=== PATIENT | female | born 1930 | race Caucasian/White ===

== ENCOUNTER → 2016-07-01 | Outpatient (CLI) | payer OTHER | LOC: BHLMT 11:30 | PROVIDERS: ATTEND Internal Medicine Cardiovascular Disease | DX: I48.0 Paroxysmal atrial fibrillation (principal); E78.00 Pure hypercholesterolemia, unspecified | CPT/HCPCS: 93005-PO ==

== ENCOUNTER 2017-12-22 09:51 | Day surgery (SDC) | payer OTHER ==
[2017-12-22] MEDS ORDERED: LR 1,000 ML IV ONE (10:15)
[2017-12-22] MEDS ORDERED: ceFAZolin 2 GM/DEXTROSE 100 ML IV ONE (10:15)
--- NOTE | 2017-12-22 11:13 | PDHPUP ---
History & Physical Update H&P update statement: This history and physical update is based on an assessment of the patient which was completed after admission or registration (within 24 hours), but prior to the surgery/procedure. H&P update: H&P reviewed & patient examined, no change in patient's condition since H&P completed
[2017-12-22] MEDS ORDERED: BUPIVACAINE 0.5% 30 ML SDV ONE (11:43)
--- NOTE | 2017-12-22 11:46 | PDANEPAE ---
ANE History of Present Illness I&D RLE ANE Past Medical History - Cardiovascular History Hx Hypertension: No Hx Arrhythmias: Yes Hx Chest Pain: No Hx Coronary Artery / Peripheral Vascular Disease: No Hx CHF / Valvular Disease: No Hx Palpitations: Yes Cardiovascular History Comment: a-fib - Pulmonary History Hx COPD: No Hx Asthma/Reactive Airway Disease: No Hx Recent Upper Respiratory Infection: No Hx Oxygen in Use at Home: No Hx Sleep Apnea: No - Neurologic History Hx Cerebrovascular Accident: No Hx Seizures: No Hx Dementia: No - Endocrine History Hx Diabetes: No - Renal History Hx Renal Disorders: No - Liver History Hx Hepatic Disorders: No - Neurological & Psychiatric Hx Hx Neurological and Psychiatric Disorders: No - Cancer History Hx Cancer: Yes Cancer History Comment: skin cancer - Congenital Disorder History Hx Congenital Disorders: No - GI History Hx Gastrointestinal Disorders: No - Other Health History Other Health History: easily bruuising - Chronic Pain History Chronic Pain: No - Surgical History Prior Surgeries: right knee replacement. tubal ANE Review of Systems Review of Systems: - Exercise capacity METS (RN): 3 METS ANE Patient History - Allergies Allergies/Adverse Reactions: No Known Allergies Allergy (Unverified 01/14/14 11:10) - Home Medications Home medications: home medication list seen and reviewed (doesn't like codeine) Home Medications: ASPIRIN 01/14/14 [Last Taken 12/21/17] Amiodarone HCl 01/14/14 [Last Taken 12/21/17] Atenolol 01/14/14 [Last Taken 12/21/17] NIACIN 01/14/14 [Last Taken 12/21/17] Pravachol 01/14/14 [Last Taken 12/21/17] - NPO status NPO Status: no food or drink >8 hours NPO Since - Liquids (Date): 12/22/17 NPO Since - Liquids (Time): 19:00 NPO Since - Solids (Date): 12/21/17 NPO Since - Solids (Time): 19:00 - Anes Hx Anes Hx: no prior problems - Smoking Hx Smoking Status: Never smoked - Alcohol Use Alcohol Use: None - Family Anes Hx Family Anes Hx: none ANE Labs/Vital Signs - Vital Signs Blood Pressure: 143/84 Heart Rate: 87 Respiratory Rate: 16 O2 Sat (%): 93 Height: 160.02 cm Weight: 68.039 kg ANE Physical Exam - Airway Neck exam: FROM Mallampati Score: Class 2 Mouth exam: poor dentition - Pulmonary Pulmonary: no respiratory distress - Cardiovascular Cardiovascular: regular rate and rhythym - ASA Status ASA Status: II ANE Anesthesia Plan Anesthesia Plan: GA w LMA
[2017-12-22] MEDS ORDERED: LIDOCAINE 2% 100 MG/5 ML SYR ONE (11:54)
[2017-12-22] MEDS ORDERED: PROPOFOL/EMULSION 500 MG/50 ML BOTTLE IV ONE (11:54)
[2017-12-22] MEDS ORDERED: fentaNYL 100 MCG/2 ML INJ ONE (11:54)
[2017-12-22] MEDS ORDERED: DEXAMETHASONE 4 MG/ML VIAL ONE (11:54)
[2017-12-22] MEDS ORDERED: ONDANSETRON 4 MG/2 ML VIAL ONE (11:54)
[2017-12-22] MEDS ORDERED: LIDOCAINE 2% JELLY 5 ML TUBE ONE (11:56)
--- NOTE | 2017-12-22 12:43 | POSTOPPROG ---
Post Op Note Date of Operation: 12/22/17 Surgeon: Cadence Holden Anesthesiologist: krystal Anesthesia: IV Sedation Pre-op Diagnosis: Squamous cell carcinoma RLE Post-op Diagnosis: Same Indication: 87 year old with squamous cell carcinoma RLE Procedure: WLE Findings: 6x4.5x0.4 Inf/Abcess present in the surg proc area at time of surgery?: Yes Depth: Superfical (Skin SQ) EBL: Minimal Specimen(s): biopsy
--- NOTE | 2017-12-22 12:49 | PDIAF ---
- Diagnosis Diagnosis: squamous cell carcinoma Code Status: Full Code - Medication Management Discharge Medications: Medications to Continue on Transfer ASPIRIN 01/14/14 [Last Taken 12/21/17] Amiodarone HCl 01/14/14 [Last Taken 12/21/17] Atenolol 01/14/14 [Last Taken 12/21/17] NIACIN 01/14/14 [Last Taken 12/21/17] Pravachol 01/14/14 [Last Taken 12/21/17] traMADol [Ultram 50 mg (*)] 50 mg PO Q6 PRN #30 tab 12/22/17 [Last Taken Unknown ] Discharge Medications: Refer to the Discharge Home Medication list for PRN reason. - Orders Services needed: Home Care, Registered Nurse Home Care Face to Face: I certify that this patient was under my care and that I had the required [id number] encounter meeting the encounter requirements on the discharge day. My findings support the fact that the patient is homebound as defined in Home Care Face to Face Continued: CMS Chapter 7 Medicare Benefits Manual 30.1.1 , The condition of the patient is such that there exists a normal inability to leave home and consequently, leaving home would require a considerable and taxing effort. Diet Recommendation: no restrictions on diet Wound Care Instructions: change wound vac 3x per week Additional Instructions: wound vac to 125. Change 3x per week - Follow Up Care Current Providers and Referrals: Jluis Alfaro NP [Primary Care Provider] - Cadence Holden MD [Medical Doctor] - follow up in 2 weeks (Can see me either at my office or at the wound healing center [address] [place] [address]. [phone])
[2017-12-22] MEDS ORDERED: ALBUTEROL 3 ML DEYVIAL IH PRN (13:13)
[2017-12-22] MEDS ORDERED: ACETAMINOPHEN 500 MG TAB PO PRN (13:13)
[2017-12-22] MEDS ORDERED: LABETALOL HCL 5 MG/ML 20 ML MDV IVP PRN (13:13)
[2017-12-22] MEDS ORDERED: MEPERIDINE 25 MG/0.5 ML AMP IVP PRN (13:13)
[2017-12-22] MEDS ORDERED: METOCLOPRAMIDE 10 MG/2 ML VIAL IVP PRN (13:13)
[2017-12-22] MEDS ORDERED: traMADol 50 MG TAB ONE (13:13)
[2017-12-22] MEDS ORDERED: NALOXONE HCL 0.4 MG/ML INJ IVP PRN (13:13)
[2017-12-22] MEDS ORDERED: fentaNYL 100 MCG/2 ML INJ IVP PRN (13:13)
[2017-12-22] MEDS ORDERED: PROMETHAZINE HCL 25 MG/ML INJ IVP PRN (13:13)
[2017-12-22] MEDS ORDERED: PHENYLEPHRINE HCL 100 MCG/ML SYR IVP PRN (13:13)
[2017-12-22] MEDS ORDERED: ONDANSETRON 4 MG/2 ML VIAL IVP PRN (13:13)
[2017-12-22] MEDS ORDERED: DEXAMETHASONE 4 MG/ML VIAL IVP PRN (13:13)
[2017-12-22] MEDS ORDERED: LR 500 ML IV PRN (13:13)
[2017-12-22] MEDS ORDERED: traMADol 50 MG TAB PO PRN (13:14)
--- NOTE | 2017-12-22 13:15 | POSTANESTH ---
Post Anesthetic Evaluation Cardiovascular Status: Normal, Stable Respiratory Status: Normal, Stable Level of Consciousness/Mental Status: Can Participate in Eval Pain Control: Adequate, Prn Tx Ordered Nausea/Vomiting Control: Adequate, Prn Tx Ordered Complications Possibly Related to Anesthesia: None Noted
--- NOTE | 2017-12-22 13:17 | GOP ---
DATE OF OPERATION: 12/22/2017 SURGEON: Cadence Holden MD ANESTHESIA: Dr. Nabil Sainz - General. PREOPERATIVE DIAGNOSIS: Right lower extremity squamous cell carcinoma. POSTOPERATIVE DIAGNOSIS: Right lower extremity squamous cell carcinoma. PROCEDURE PERFORMED: Wide local excision, debridement skin and soft tissue, including the periosteum , and wound VAC placement. FINDINGS: Grossly necrotic tissue. I had to debride all the way down to the periosteum before I cou ld even see a scant amount of small blood vessels. SPECIMENS: Soft tissue for Pathology. ESTIMATED BLOOD LOSS: 2 mL. INDICATIONS: Soha De Anda is an 87-year-old status post wide local excision, squamous cell carcinom a, right lower extremity, and radiation. She has had a nonhealing wound. DESCRIPTION OF PROCEDURE: Patient was brought into the operating room, placed supine on the table. Monitored anesthesia care with IV sedation was performed. Her leg was prepped and draped in the usua l sterile fashion. I infiltrated the area with 10 cc of 0.5% Marcaine. I debrided the necrotic tiss ue off the top. I then used Misonix with a curette to debride down to continue my debridement. I wa s down to the periosteum. There was scant amount of healthy viable tissue. The edges were all healt hy. Hemostasis achieved. I placed a wound VAC. I am hoping that the granulation tissue will migrat e in peripherally. She was awakened in the operating room, transferred to PACU in stable condition. /[id number]/MODL
[2017-12-22 14:34] VITALS: BP 125/96
== END 2017-12-22 14:34 | disposition home health service (06) ==
LOC: FSGY 09:51
PROVIDERS: ATTEND Surgery
PROC: 2W1LX6Z Compression of Right Lower Extremity using Pressure Dressing (ICD-10-PCS; principal; 2017-12-22 12:00)
PROC: 0JBN0ZZ Excision of Right Lower Leg Subcutaneous Tissue and Fascia, Open Approach (ICD-10-PCS; principal; 2017-12-22 12:00)
DX: T81.89XA Other complications of procedures, not elsewhere classified, initial encounter (principal); L97.213 Non-pressure chronic ulcer of right calf with necrosis of muscle; Z85.828 Personal history of other malignant neoplasm of skin; I48.0 Paroxysmal atrial fibrillation; Z79.01 Long term (current) use of anticoagulants; E78.00 Pure hypercholesterolemia, unspecified
CPT/HCPCS: J0690; J1100; J2001; J2405; J2704; J3010

== ENCOUNTER 2018-02-11 10:43 | Observation (INO) | payer OTHER ==
[2018-02-11] MEDS ORDERED: BUPIVACAINE 0.5% 30 ML SDV ONE (11:00)
[2018-02-11] MEDS ORDERED: MINERAL OIL 10 ML VIAL ONE (11:00)
[2018-02-11] MEDS ORDERED: EPINEPHrine 1 MG/ML INJ ONE (11:00)
[2018-02-11] MEDS ORDERED: LR 1,000 ML IV ONE (11:05)
[2018-02-11] MEDS ORDERED: ceFAZolin 2 GM/DEXTROSE 100 ML IV ONE (11:05)
--- NOTE | 2018-02-11 12:34 | PDANEPAE ---
ANE History of Present Illness stsg ANE Past Medical History - Cardiovascular History Hx Hypertension: No Hx Arrhythmias: Yes Hx Chest Pain: No Hx Coronary Artery / Peripheral Vascular Disease: No Hx CHF / Valvular Disease: No Hx Palpitations: Yes Cardiovascular History Comment: a-fib - Pulmonary History Hx COPD: No Hx Asthma/Reactive Airway Disease: No Hx Recent Upper Respiratory Infection: No Hx Oxygen in Use at Home: No Hx Sleep Apnea: No Sleep Apnea Screening Result - Last Documented: Negative - Neurologic History Hx Cerebrovascular Accident: No Hx Seizures: No Hx Dementia: No - Endocrine History Hx Diabetes: No Hypothyroid: No Hyperthyroid: No Obesity: no - Renal History Hx Renal Disorders: No - Liver History Hx Hepatic Disorders: No - Neurological & Psychiatric Hx Hx Neurological and Psychiatric Disorders: No - Cancer History Hx Cancer: Yes Cancer History Comment: skin cancer - Congenital Disorder History Hx Congenital Disorders: No - GI History Hx Gastrointestinal Disorders: No - Other Health History Other Health History: BLOOD CLOT POST KNEE REPLACEMENT 2000. VANNA LOWER EXT SWELLING. easily bruuising - Chronic Pain History Chronic Pain: Yes (RT LEG) - Surgical History Prior Surgeries: I&D RT AGUILAR POST REMVL SKIN CA WITH PLACEMENT OF WOUND VAC 12/22 -. RT TOTAL KNEE 2000. APPY. TUBAL LIGATION. TONSILLECTOMY. right knee replacement. tubal ANE Review of Systems Review of Systems: - Exercise capacity Exercise capacity: >=4 METS METS (RN): 4 METS ANE Patient History - Allergies Allergies/Adverse Reactions: No Known Allergies Allergy (Verified 02/04/18 10:40) - Home Medications Home medications: home medication list seen and reviewed Home Medications: Atenolol [Tenormin 25 mg (*)] 12.5 mg PO BID #0 01/14/14 [Last Taken 02/11/18] Pravastatin Sodium 20 mg PO DAILY #0 01/14/14 [Last Taken 02/11/18] Acetaminophen [Tylenol 325mg (*)] 650 mg PO Q6HRS PRN 02/04/18 [Last Taken 02/10] Apixaban [Eliquis] 5 mg PO BID 02/04/18 [Last Taken 02/07/18] Docusate Sodium [Colace 100 MG (*)] 100 mg PO BID PRN 02/04/18 [Last Taken 02/10] Furosemide [Lasix 40 MG (*)] 40 mg PO DAILY 02/04/18 [Last Taken 02/10/18] Multivitamins [Multivitamin (*)] 1 each PO DAILY 02/04/18 [Last Taken 02/04/18] - NPO status NPO Since - Liquids (Date): 02/11/18 NPO Since - Liquids (Time): 09:00 NPO Since - Solids (Date): 02/10/18 NPO Since - Solids (Time): 20:00 - Smoking Hx Smoking Status: Never smoked ANE Labs/Vital Signs - Vital Signs Blood Pressure: 114/79 Heart Rate: 89 Respiratory Rate: 16 O2 Sat (%): 95 Height: 165.1 cm Weight: 65.771 kg ANE Physical Exam - Airway Mallampati Score: Class 2 Mouth exam: normal dental/mouth exam - Pulmonary Pulmonary: no respiratory distress - Cardiovascular Cardiovascular: regular rate and rhythym - ASA Status ASA Status: II ANE Anesthesia Plan Anesthesia Plan: GA w LMA
[2018-02-11] MEDS ORDERED: fentaNYL 100 MCG/2 ML INJ ONE ×2 (12:42→13:59)
[2018-02-11] MEDS ORDERED: PROPOFOL 200 MG/20 ML VIAL ONE (12:42)
[2018-02-11] MEDS ORDERED: NALOXONE HCL 0.4 MG/ML INJ IVP PRN (13:23)
[2018-02-11] MEDS ORDERED: ALBUTEROL 3 ML DEYVIAL IH PRN (13:23)
[2018-02-11] MEDS ORDERED: ONDANSETRON 4 MG/2 ML VIAL IVP PRN ×2 (13:23→13:26)
[2018-02-11] MEDS ORDERED: ACETAMINOPHEN 325 MG TAB PO PRN (13:26)
[2018-02-11] MEDS ORDERED: HYDROCODONE/APAP 5/325 TAB PO PRN (13:26)
[2018-02-11] MEDS ORDERED: DOCUSATE SODIUM 100 MG CAP PO PRN (13:26)
[2018-02-11] MEDS ORDERED: ONDANSETRON DISINTEGRATING 4 MG TAB PO PRN (13:26)
--- NOTE | 2018-02-11 13:28 | POSTOPPROG ---
Post Op Note Date of Operation: 02/11/18 Surgeon: Cadence Holden Anesthesiologist: chiquita Anesthesia: GET(General Endotracheal) Pre-op Diagnosis: squamous cell with chronic wound Post-op Diagnosis: same Indication: 88 yo with scc chronic wound Procedure: debride s soft tissue 6x7 and stsg Findings: amniofill [id number] exp 06/28/2022 Inf/Abcess present in the surg proc area at time of surgery?: No EBL: Minimal
[2018-02-11] MEDS: fentaNYL 100 MCG/2 ML INJ IVP PRN ×2 (14:03→14:10)
[2018-02-11] MEDS: ATENOLOL 25 MG TAB PO SCH (20:16)
[2018-02-12] MEDS ORDERED: PRAVASTATIN SODIUM 20 MG TAB PO SCH (09:00)
[2018-02-12] MEDS ORDERED: FUROSEMIDE 40 MG TAB PO SCH (09:00)
--- NOTE | 2018-02-12 10:09 | PDIAF ---
- Diagnosis Diagnosis: RLE chronic wound Code Status: Full Code - Medication Management Discharge Medications: electronically signed and located in the Home Medication List. PICC Care - Routine: N/A - Orders Services needed: Home Care, Registered Nurse Home Care Face to Face: I certify that this patient was under my care and that I had the required [id number] encounter meeting the encounter requirements on the discharge day. My findings support the fact that the patient is homebound as defined in Home Care Face to Face Continued: CMS Chapter 7 Medicare Benefits Manual 30.1.1 , The condition of the patient is such that there exists a normal inability to leave home and consequently, leaving home would require a considerable and taxing effort. Diet Recommendation: no restrictions on diet Diet Texture: Regular Texture Diet Wound Care Instructions: R thigh donor site - change mepilex transfer, ABD, tegaderm q2-3d or more PRN saturation. RLE graft site - remain on suction continuously x 1 week (or until appt with Dr. Holden) Additional Instructions: VAC must remain on suction x 1 week. Do not shower. Sponge bath only. FU Weds for wound check. Home care to check in every 2-3 days for R donor site thigh dressing change. No wound vac change! - Follow Up Care Current Providers and Referrals: Armand Coelho MD [Primary Care Provider] - Cadence Holden MD [Medical Doctor] - 02/17/18
--- NOTE | 2018-02-12 10:11 | SOAPPROG ---
SOAP Progress Note Assessment/Plan: Assessment/Plan: 88yo F with chronic RLE wound POD#1 s/p STSG Wound vac x 1 week Change thigh dressing PRN - home care OK to restart eliquis Dispo: DC to home with home care. FU 1 week for wound vac/vac removal S: feeling well. no pain now but wants Rx in case has pain over weekend O: lying in bed, comfortable, no acute distress No increased work of breathing No peripheral edema Right lower extremity wound VAC to suction, no surrounding erythema Right thigh donor site dressing intact without staining Objective: Vital Signs Temp Pulse Resp BP Pulse Ox 36.7 C 74 14 111/77 92 02/12/18 08:28 02/12/18 08:28 02/12/18 08:28 02/12/18 08:28 02/12/18 08:28 02/11/18 02/12/18 02/13/18 05:59 05:59 05:59 Intake Total 1120 Balance 1120 ICD10 Worksheet Patient Problems: Problems Problem Status Onset Nonhealing surgical wound Acute - ICD10 Problem Qualifiers (1) Nonhealing surgical wound
--- NOTE | 2018-02-12 10:24 | ASDISCHSUM ---
Discharge Information Plan Status:Home with Home Health Medically Cleared to Leave:02/11/2018 Discharge Date:02/11/2018 CM D/C Disposition: ADT D/C Disposition:Home Health Service Projected Discharge Date:02/12/2018 11:00 AM Transportation at D/C: Discharge Delay Reason: Follow-Up Date:02/12/2018 11:00 AM Discharge Slot: Final Diagnosis: Placement Information Referral Type:*Home Health Care Services Referral ID:[id number] Provider Name:[facility] Address 1:[email or web address] Phone Number: Address 2: Fax Number: City:[place] Selection Factors: State:[place] Patient Contact Information Contact Name:EVENS Relationship:Castro Address: City: [facility] Phone: [facility] Code: Email: Financial Information Financial Class:Medicare Primary Plan Desc:MEDICARE OUTPATIENT Primary Plan Number:[id number] Secondary Plan Desc:[facility] Secondary Plan Number:[id number] Assessment Information LACE LACE Length of stay for Answers: 1 day current admission Acuity / Level of Answers: No Care: Did the patient have an inpatient admission? Comorbidities - select Answers: Opioid dependence all that apply / Chronic pain Other Notes: AFib # of Emergency department Answers: 0 visits in the last 6 months Score: 6 Date Signed: 02/12/2018 10:21 AM Electronically Signed By:PETRA Washington [facility] Progress Note CM Note CM Note Notes: Pt is a 88 y/o female admitted for a chronic wound on her lower extremity. Pt had surgery w/ Dr. Holden. Pt is being discharged today. CM met w/ pt and daughter for dispo planning. Pt reports that she is current w/ [facility]. Resumption of care sent to [facility]. CM available for changes. Plan: Independent Date Signed: 02/12/2018 10:20 AM Electronically Signed By:PETRA Washington Intervention Information
[2018-02-12] MEDS: ATENOLOL 25 MG TAB PO SCH (10:32)
[2018-02-12 10:34] VITALS: BP 114/70
--- NOTE | 2018-02-12 14:28 | GDS ---
ADMITTING DIAGNOSIS: Chronic right lower extremity wound. SECONDARY DIAGNOSES: History of deep vein thrombosis, hyperlipidemia, atrial fibrillation, arthritis . REASON FOR ADMISSION: The patient is an 88-year-old woman who had a squamous cell removed from her r ight lower extremity by Mohs procedure. She had positive margins. She then underwent radiation. Malorie alfaro developed a chronic nonhealing wound in the area. At this time, she is ready for split-thickness s kin. HOSPITAL COURSE: On 02/11/2018, she was taken to the operating room by Dr. Cadence Holden for a split-t hickness skin graft of the right lower extremity with AmnioFill placement. A wound VAC was applied. On postoperative day #1, her pain was well controlled with oral pain medication. She was tolerating a regular diet. She was ambulating independently and was ready for discharge. CONDITION ON DISCHARGE: She is being discharged home in stable condition. She will have home care. She is ambulating independently, tolerating a regular diet, and pain is well controlled. DISCHARGE MEDICATIONS: Sent home with a prescription for [place]. Instructed to resume home medicines . Please see EMR for further detail. DISCHARGE INSTRUCTIONS AND FOLLOWUP: She will follow up in 1 week for wound VAC change and wound arabella ck. She will have a home care nurse check in periodically for right thigh donor site dressing change s. Wound care instructions were provided. She will not shower or get the wound VAC wet. She unders tands that the wound VAC must remain to suction continuously and notify somebody immediately if it be gins to alarm. She will call with worsening symptoms, questions, or concerns. /[id number]/MODL
== END 2018-02-12 11:29 | disposition home health service (06) ==
LOC: F3N 10:43 → F3E 15:14
PROVIDERS: ADMIT Surgery; ATTEND Surgery
DX: T81.89XA Other complications of procedures, not elsewhere classified, initial encounter (principal); L97.219 Non-pressure chronic ulcer of right calf with unspecified severity; I48.0 Paroxysmal atrial fibrillation; E78.00 Pure hypercholesterolemia, unspecified; Z79.01 Long term (current) use of anticoagulants; Z87.891 Personal history of nicotine dependence; Z85.828 Personal history of other malignant neoplasm of skin; Z86.718 Personal history of other venous thrombosis and embolism; Z92.3 Personal history of irradiation; Z96.651 Presence of right artificial knee joint; Z82.49 Family history of ischemic heart disease and other diseases of the circulatory system
CPT/HCPCS: 15100; C9399; J0171; J0690; J2704; J3010